=== PATIENT | male | born 1940 | race African-American/Black ===

== ENCOUNTER 2019-05-29 02:47 | Inpatient (IN) | payer MEDICARE, OTHER ==
[2019-05-29 03:19] LABS: #Eosinphils 0.1 thou/uL (0.0-0.7); #Lymphocytes 1.2 thou/uL (1.20-3.40); #Monocytes 0.6 thou/uL (0.11-0.59); #Neutrophils 9.8 thou/uL (1.40-6.50); %Eosinophils 0.4 % (0.0-10.0); %Lymphocytes 10.2 % (21.0-51.0); %Monocytes 4.9 % (0.0-10.0); %Neutrophils 84.5 % (42.0-75.0); Mean Corpuscular HGB CONC 33.6 g/dL (32.0-36.0); Mean Corpuscular Hemoglobin 30.2 pg (27.0-31.0); Mean Platelet Volume 8.5 fL (7.4-10.4); Platelet Count 195 thou/uL (130-400); RBC Distribution Width 14.1 % (11.5-14.5); Red Blood Cell (RBC) Count 3.97 mill/uL (4.70-6.10); White Blood Cell (WBC) Count 11.5 thou/uL (4.8-10.8)
[2019-05-29] MEDS ORDERED: Furosemide 40 MG/4 ML VIAL ONE (03:43)
[2019-05-29 03:47] LABS: ALT (SGPT) 8 U/L (8-55); AST (SGOT) 13 U/L (5-34); Alkaline Phosphatase 69 U/L (40-110); Anion Gap 15 mmol/L (10-20); BUN (Urea Nitrogen) 25 mg/dL (8.4-25.7); Bilirubin, Total 0.7 mg/dL (0.2-1.2); Calc. Creatinine Clearance 0 mL/min (70-130); Calcium 9.8 mg/dL (7.8-10.44); Carbon Dioxide 23 mmol/L (23-31); Chloride 112 mmol/L (98-107); Estimated GFR-MDRD 45; Globulin 3.2 g/dL (2.4-3.5); Glucose 174 mg/dL (83-110); Potassium 3.7 mmol/L (3.5-5.1); Protein, Total 7.2 g/dL (5.8-8.1); Sodium 146 mmol/L (136-145)
[2019-05-29 04:05] LABS: CKMB 2.8 ng/mL (0-6.6)
--- NOTE | 2019-05-29 04:39 | PDOC.EVN ---
Event Note - Event Note Event Note: [id number]
--- NOTE | 2019-05-29 05:04 | HP ---
CHIEF COMPLAINT: Shortness of breath. HISTORY OF PRESENT ILLNESS: Mr. Kearney is a 78-year-old male with past medical history of congestive heart failure, COPD, sleep apnea, diabetes, hypertension, hyperlipidemia, benign brain tumor, among others, presents to the emergency room with shortness of breath for the last few days. As per the patient, he always has shortness of breath, but the last few days, his symptoms got worse. Denies chest pain or palpitations. No fever, no chills. Workup in the emergency room, the patient had a BNP of 807. The patient had bilateral crackles. The patient was given IV Lasix. The patient is being admitted to hospital for further management. The patient's blood pressure was elevated at 178/100. The patient was given nitroglycerin paste, latest blood pressure is 147/85. PAST MEDICAL HISTORY: As mentioned above in history of present illness. PAST SURGICAL HISTORY: 1. Left total knee surgery. 2. TURP. 3. Heart catheterization. FAMILY HISTORY: Reviewed and noncontributory. HOME MEDICATIONS: Please see home medication reconciliation form for updated medications. ALLERGIES: NO KNOWN ALLERGIES. REVIEW OF SYSTEMS: Review of 14 systems negative except what is mentioned in history of present illness. PHYSICAL EXAMINATION: GENERAL: The patient is awake, alert, in moderate respiratory distress. VITAL SIGNS: Blood pressure 147/85, pulse is 67, respiratory rate is 20, temperature 98.3, oxygen saturation is 96% on 3 L/minute nasal cannula. HEAD AND NECK: Normocephalic, atraumatic. NECK: Supple. No JVD. CHEST: Few bibasilar crackles. HEART: S1, S2. Regular. ABDOMEN: Obese, soft. Bowel sounds present. NEUROLOGIC: Awake, alert, oriented x3. PSYCHIATRIC: Normal mood. EXTREMITIES: Trace pedal edema. LABORATORY DATA: Sodium 146, potassium 3.7, BUN is 25, creatinine 1.7, glucose 174. BNP is 807, troponin 0.08. WBC count is 11.5, hemoglobin is 12, platelets 195. ASSESSMENT: 1. Acute on chronic congestive heart failure, type is undetermined. As per patient, last 2D echo was 3 years ago. 2. Acute on chronic respiratory failure. 3. Chronic obstructive pulmonary disease. 4. Diabetes mellitus. 5. Hypertension. 6. Hyperlipidemia. PLAN: 1. Admit. 2. Telemetry monitoring. 3. Serial troponins. 4. Continue with IV diuresis. 5. Monitor and control blood pressure. 6. Oxygen to keep saturation more than 92%. 7. Reconcile home medications. 8. A 2D echo in a.m. Last 2D echo was 3 years ago. 9. Consider cardiology consultation in a.m. 10. Deep venous thrombosis prophylaxis, low-dose heparin. 11. Expected length of stay, 2 midnights or more. Job ID: [id number]
[2019-05-29 05:54] VITALS: BMI 31.6
[2019-05-29 07:08] LABS: Troponin I 0.184 ng/mL (< 0.028)
[2019-05-29] MEDS: Furosemide 40 MG/4 ML VIAL SLOW IVP SCH ×2 (07:53→14:37)
--- NOTE | 2019-05-29 08:21 | RAD ---
Exam: Chest one view: HISTORY: Chest pain and difficulty breathing FINDINGS: Cardiomegaly with bilateral vascular congestion and interstitial and alveolar edema with costophrenic angle blunting, probably representing small pleural effusions. No confluent pneumonia. IMPRESSION: Evidence for congestive heart failure with cardiomegaly, vascular congestion, and interstitial and al veolar edema. Continued short-term follow-up.
[2019-05-29] MEDS: Heparin 5,000 UNITS/ML VIAL SC SCH ×3 (08:31→20:51)
[2019-05-29] MEDS: Aspirin Chewable 81 MG TAB PO SCH (08:31)
[2019-05-29] MEDS ORDERED: HumaLOG 300 UNITS/3 ML VIAL SC PRN (11:31)
[2019-05-29] MEDS ORDERED: Dextrose 50% Abboject 50 ML SYRINGE SLOW IVP PRN (11:31)
[2019-05-29] MEDS ORDERED: Dextrose 5% in Water 1,000 ML IV PRN (11:31)
[2019-05-29] MEDS ORDERED: hydrALAZINE 25 MG TAB PO SCH (13:45)
[2019-05-29] MEDS ORDERED: Escitalopram Oxalate 10 mg Tablet PO SCH (14:00)
--- NOTE | 2019-05-29 15:56 | PDOC.EVN ---
Event Note - Event Note Event Note: Patient examined. 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 He has a history of CHF. Has been hospitalized in the past with CHF. Here visiting his daughter. He has received IV lasix. He is doing much better already. Breathing better. Does not have oxygen at home, but feels like it is helping him at the moment. Heart regular. Lungs with mild basilar rales. Abdomen benign. Extremities without significant edema. Continue IV Lasix for volume overload related to the CHF. Echo pending. BP high. Resuming home meds and giving now doses for those he has missed already today.
[2019-05-29] MEDS ORDERED: hydrALAZINE 20 MG/ML VIAL SLOW IVP PRN (16:58)
[2019-05-29] MEDS: hydrALAZINE 25 MG TAB PO SCH (20:48)
[2019-05-29] MEDS: Carvedilol 6.25 MG TAB PO SCH (20:49)
[2019-05-29] MEDS: Atorvastatin Calcium 40 MG TAB PO SCH (20:49)
[2019-05-29] MEDS: Tamsulosin HCl 0.4 MG CAP PO SCH (20:49)
[2019-05-29] MEDS: Fluticasone Propionate Nasal Spray 16 gm Bottle NASAL SCH (20:51)
[2019-05-29] MEDS: Polyethylene Glycol 3350 17 GM Packet PO SCH (20:55)
[2019-05-29] MEDS ORDERED: Prevnar 13-Val Conj/PF 0.5 ML SYRINGE IM ONE (21:00)
[2019-05-29] MEDS ORDERED: FLU VACC TS2019-20(65YR UP)/PF 180 MCG/0.5 ML SYRINGE IM ONE (21:00)
[2019-05-29] MEDS ORDERED: Furosemide 40 MG TAB PO SCH (21:00)
[2019-05-30 05:12] LABS: Anion Gap 13 mmol/L (10-20); BUN (Urea Nitrogen) 23 mg/dL (8.4-25.7); Calc. Creatinine Clearance 64 mL/min (70-130); Calcium 10.2 mg/dL (7.8-10.44); Carbon Dioxide 23 mmol/L (23-31); Chloride 110 mmol/L (98-107); Estimated GFR-MDRD 58; Glucose 123 mg/dL (83-110); Magnesium 2.1 mg/dL (1.6-2.6); Potassium 3.3 mmol/L (3.5-5.1); Sodium 143 mmol/L (136-145)
[2019-05-30] MEDS: Furosemide 40 MG/4 ML VIAL SLOW IVP SCH ×2 (05:49→14:11)
[2019-05-30] MEDS: Sodium Chloride 0.9% 10 ML ONE (05:49)
[2019-05-30] MEDS: Carvedilol 6.25 MG TAB PO SCH (08:20)
[2019-05-30] MEDS: Alogliptin 25 MG TAB PO SCH (08:20)
[2019-05-30] MEDS: hydrALAZINE 25 MG TAB PO SCH ×3 (08:21→20:34)
[2019-05-30] MEDS: Losartan 25 MG TAB PO SCH (08:21)
[2019-05-30] MEDS: Escitalopram Oxalate 10 mg Tablet PO SCH (08:22)
[2019-05-30] MEDS: Aspirin Chewable 81 MG TAB PO SCH (08:22)
[2019-05-30] MEDS: Ezetimibe 10 MG TAB PO SCH (08:22)
[2019-05-30] MEDS: Montelukast Sodium 10 mg Tablet PO SCH (08:22)
[2019-05-30] MEDS: Ferrous Sulfate 325 MG TAB PO SCH (08:22)
[2019-05-30] MEDS: Heparin 5,000 UNITS/ML VIAL SC SCH ×3 (08:22→20:41)
[2019-05-30] MEDS ORDERED: Non-Formulary Item 1 EACH (Tiotropium Bromide [Spiriva Respimat] 2 INH) IH SCH (09:00)
[2019-05-30] MEDS ORDERED: Potassium Chloride 20 MEQ TAB PO SCH (09:15)
--- NOTE | 2019-05-30 09:28 | PDOC.HOSPP ---
- Subjective Encounter Date: 05/30/19 Encounter Time: 09:26 Subjective: Feels like his is not any better. He had felt better yesterday at the time of my exam, but now feels like he may have regressed. He does believe that we are giving him all of his usual home meds and he is not missing anything. He reports pain in the right "kidney" area. Monitor indicates frequent morphology change with a wider QRS and higher voltage potential. Does not drastically impact the rate. - Objective Vital Signs & Weight: Vital Signs (12 hours) Temp Pulse Resp BP BP Pulse Ox 05/30/19 08:21 72 201/91 H 05/30/19 08:20 201/91 H 05/30/19 07:00 72 21 H 174/72 H 94 L 05/30/19 06:40 97 05/30/19 06:39 62 18 97 05/30/19 05:49 59 L 05/30/19 05:47 98.1 F 59 L 20 190/92 H 94 L 05/30/19 00:17 78 16 98 05/30/19 00:05 165/95 H 98 Weight Weight 230 lb 9.6 oz I&O: 05/29/19 05/30/19 05/31/19 06:59 06:59 06:59 Intake Total 1120 Output Total 2725 Balance -1605 Result Diagrams: 05/29/19 03:10 05/30/19 04:21 Additional Labs: Accuchecks 05/30/19 05/29/19 05/29/19 05:48 20:01 17:03 POC Glucose 110 144 H 152 H Hospitalist ROS - Medication Medications: Active Medications Generic Name Dose Route Start Last Admin Trade Name Freq PRN Reason Stop Dose Admin Albuterol/Ipratropium 3 ml 05/29/19 19:00 05/30/19 06:39 Duoneb NEB 3 ml [id number] [place] Administration Alogliptin Benzoate 25 mg 05/30/19 09:00 05/30/19 08:20 Alogliptin PO 25 mg DAILY [place] Administration Aspirin 81 mg 05/29/19 09:00 05/30/19 08:22 Aspirin Chewable PO 81 mg DAILY [place] Administration Atorvastatin Calcium 40 mg 05/29/19 21:00 05/29/19 20:49 Lipitor PO 40 mg HS [place] Administration Carvedilol 12.5 mg 05/29/19 21:00 05/30/19 08:20 Coreg PO 12.5 mg BID [place] Administration Ezetimibe 10 mg 05/30/19 09:00 05/30/19 08:22 Zetia PO 10 mg DAILY [place] Administration Escitalopram Oxalate 10 mg 05/30/19 09:00 05/30/19 08:22 Lexapro PO 10 mg DAILY [place] Administration Ferrous Sulfate 325 mg 05/30/19 09:00 05/30/19 08:22 Feosol PO 325 mg DAILY [place] Administration Fluticasone Propionate 0 gm 05/29/19 21:00 05/29/19 20:51 Flonase Nasal Logan NASAL Not Given BID [place] Furosemide 40 mg 05/29/19 06:00 05/30/19 05:49 Lasix SLOW IVP 40 mg 0600,1400 [place] Administration Heparin Sodium (Porcine) 5,000 units 05/29/19 09:00 05/30/19 08:22 Heparin SC 5,000 units TID [place] Administration Hydralazine HCl 50 mg 05/29/19 21:00 05/30/19 08:21 Apresoline PO 50 mg TID [place] Administration Hydralazine HCl 10 mg 05/29/19 16:58 05/30/19 05:49 Apresoline SLOW IVP 10 mg Q4H PRN Administration Hypertension Losartan Potassium 100 mg 05/30/19 09:00 05/30/19 08:21 Cozaar PO 100 mg DAILY [place] Administration Montelukast Sodium 10 mg 05/30/19 09:00 05/30/19 08:22 Singulair PO 10 mg DAILY [place] Administration Polyethylene Glycol 17 gm 05/29/19 21:00 05/29/19 20:55 Miralax PO 17 gm HS [place] Administration Tamsulosin HCl 0.4 mg 05/29/19 21:00 05/29/19 20:49 Flomax PO 0.4 mg HS [place] Administration - Exam General Appearance: NAD, awake alert General - other findings: Appears generally comfortable with NC oxygen. Heart: no murmur, no rubs, irregular Respiratory - other findings: Diminished slightly and minimal bibasilar rales. Gastrointestinal: soft, non-tender, non-distended, normal bowel sounds, no palpable masses, no hepatomegaly, no splenomegaly, no bruit Gastrointestinal - other findings: No Right CVAT. Extremities: no cyanosis, no clubbing, no edema Skin: normal turgor Musculoskeletal: normal tone, normal strength, no muscle wasting Psychiatric: normal affect, normal behavior, A&O x 3 Hosp A/P (1) Acute on chronic congestive heart failure Code(s): I50.9 - HEART FAILURE, UNSPECIFIED Status: Acute (2) HTN (hypertension) Code(s): I10 - ESSENTIAL (PRIMARY) HYPERTENSION Status: Acute (3) Atrial ectopy Code(s): I49.1 - ATRIAL PREMATURE DEPOLARIZATION Status: Acute (4) JAMESON (acute kidney injury) Code(s): N17.9 - ACUTE KIDNEY FAILURE, UNSPECIFIED Status: Acute (5) Diabetes mellitus Code(s): E11.9 - TYPE 2 DIABETES MELLITUS WITHOUT COMPLICATIONS Status: Acute (6) Right flank pain Code(s): R10.9 - UNSPECIFIED ABDOMINAL PAIN Status: Acute (7) Leukocytosis Code(s): D72.829 - ELEVATED WHITE BLOOD CELL COUNT, UNSPECIFIED Status: Acute (8) HLD (hyperlipidemia) Code(s): E78.5 - HYPERLIPIDEMIA, UNSPECIFIED Status: Acute (9) BPH (benign prostatic hyperplasia) Code(s): N40.0 - BENIGN PROSTATIC HYPERPLASIA WITHOUT LOWER URINRY TRACT SYMP Status: Acute (10) Myocardial infarction Code(s): I21.9 - ACUTE MYOCARDIAL INFARCTION, UNSPECIFIED Status: Acute Qualifiers: Myocardial infarction type: type 2 Qualified Code(s): I21.A1 - Myocardial infarction type 2 - Plan BP still too high. Has prn's available. Just had his am meds. Will watch that closely. Renal function is a little better. Do not know what his baseline creatinine is. Will get US of kidneys given the presumed JAMESON and right flank pain. Has diuresed. Still SOB. Repeat CXR. Echo results still pending. Cardiology consult. Discussed with Dr. Giang. Rhythm and morphology a little unusual. Appears to be more of an axis change with atrial ectopy. Dr. Giang aware. Will check Mag, TSH. Trops slightly elevated consistent with NSTEMI type 2 related to CHF. UA in light of JAMESON, right flank pain and leukocytosis. Repeat CBC.
[2019-05-30] MEDS: Fluticasone Propionate Nasal Spray 16 gm Bottle NASAL SCH ×2 (09:31→20:40)
[2019-05-30 12:09] LABS: #Eosinphils 0.1 thou/uL (0.0-0.7); #Lymphocytes 1.2 thou/uL (1.20-3.40); #Monocytes 0.5 thou/uL (0.11-0.59); #Neutrophils 6.8 thou/uL (1.40-6.50); %Basophils 0.5 % (0.0-1.0); %Eosinophils 0.6 % (0.0-10.0); %Lymphocytes 14.1 % (21.0-51.0); %Monocytes 6.1 % (0.0-10.0); %Neutrophils 78.6 % (42.0-75.0); Hemoglobin 12.5 g/dL (14.0-18.0); Mean Corpuscular HGB CONC 32.9 g/dL (32.0-36.0); Mean Corpuscular Hemoglobin 29.5 pg (27.0-31.0); Mean Corpuscular Volume 89.5 fL (78.0-98.0); Mean Platelet Volume 9.3 fL (7.4-10.4); Platelet Count 192 thou/uL (130-400); RBC Distribution Width 14.3 % (11.5-14.5); Red Blood Cell (RBC) Count 4.22 mill/uL (4.70-6.10); White Blood Cell (WBC) Count 8.6 thou/uL (4.8-10.8)
--- NOTE | 2019-05-30 12:41 | RAD ---
CHEST 1 VIEW: Date: 05/30/19 HISTORY: Congestive heart failure. COMPARISON: 05/29/19. FINDINGS: Stable cardiomegaly. Improving vascular congestion and interstitial edema from the prior study. IMPRESSION: Improving vascular congestion and edema from the prior study. Continue follow-up for clearing or stab ility. POS: [facility]
--- NOTE | 2019-05-30 13:55 | ULT ---
BILATERAL RENAL ULTRASOUND: Date: 05/30/19 COMPARISON: None. HISTORY: Acute kidney injury, hypertension, right-sided flank pain. TECHNIQUE: Multiplanar Seth scale sonographic imaging of the kidneys and urinary bladder obtained. FINDINGS: The right kidney measures 10.5 x 5.3 x 4.9 cm. The left kidney measures 10.1 x 5.4 x 5.9 cm. There is a small right renal cyst measuring approximately 1.8 x 2.5 x 2.3 cm. No solid renal mass noted on ei ther side. No hydronephrosis is apparent on either side. Urinary bladder appears grossly unremarkable. IMPRESSION: No hydronephrosis noted on either side. Right renal cyst. POS: OFF
[2019-05-30] MEDS: Isosorbide Dinitrate 20 MG TAB PO SCH ×2 (15:00→20:34)
--- NOTE | 2019-05-30 17:03 | PDOC.FMACP ---
Advance Care Planning - Problem (1) Acute on chronic congestive heart failure Status: Acute Code(s): I50.9 - HEART FAILURE, UNSPECIFIED (2) HTN (hypertension) Status: Acute Code(s): I10 - ESSENTIAL (PRIMARY) HYPERTENSION (3) Atrial ectopy Status: Acute Code(s): I49.1 - ATRIAL PREMATURE DEPOLARIZATION (4) JAMESON (acute kidney injury) Status: Acute Code(s): N17.9 - ACUTE KIDNEY FAILURE, UNSPECIFIED (5) Diabetes mellitus Status: Acute Code(s): E11.9 - TYPE 2 DIABETES MELLITUS WITHOUT COMPLICATIONS (6) Right flank pain Status: Acute Code(s): R10.9 - UNSPECIFIED ABDOMINAL PAIN (7) Leukocytosis Status: Acute Code(s): D72.829 - ELEVATED WHITE BLOOD CELL COUNT, UNSPECIFIED (8) HLD (hyperlipidemia) Status: Acute Code(s): E78.5 - HYPERLIPIDEMIA, UNSPECIFIED (9) BPH (benign prostatic hyperplasia) Status: Acute Code(s): N40.0 - BENIGN PROSTATIC HYPERPLASIA WITHOUT LOWER URINRY TRACT SYMP (10) Myocardial infarction Status: Acute Code(s): I21.9 - ACUTE MYOCARDIAL INFARCTION, UNSPECIFIED Qualifiers: Myocardial infarction type: type 2 Qualified Code(s): I21.A1 - Myocardial infarction type 2 - Note Participants: patient, family Summary: Advanced Care Planning was discussed. The diagnosis, prognosis and goals of care were discussed. Appropriate forms and documentation to accomplish the goals of care were discussed. All questions were answered. The Palliative Care Team will be engaged to assist with completion of any outstanding forms that are needed. Currently the family and patient are discussing Hospice. Time Spent (mins): 17
--- NOTE | 2019-05-30 19:05 | CON ---
DATE OF CONSULTATION: HISTORY OF PRESENT ILLNESS: The patient is a pleasant 78-year-old gentleman, presents for evaluation of dyspnea. The patient has a previous history of congestive heart failure. The patient is followed by a helper coordinator in [place]. He states that he underwent a cardiac catheterization previously, revealed only mild coronary artery disease. The patient was in his usual state of health when he presented with acute onset of dyspnea. The patient denied having any chest discomfort. He presented to the emergency room and was noted to be markedly hypertensive. The patient states he has been compliant with his medications and low-sodium diet. PAST MEDICAL HISTORY: 1. Congestive heart failure. 2. Hypertension. 3. Diabetes mellitus. 4. Dyslipidemia. 5. COPD. 6. Sleep apnea. 7. History of benign brain tumor. PAST SURGICAL HISTORY: He had a knee surgery and TURP. SOCIAL HISTORY: Nonsmoker. FAMILY HISTORY: No strong family history of heart disease. ALLERGIES: NO KNOWN DRUG ALLERGIES. MEDICATIONS: On admission include, he takes; 1. Zetia 10 daily. 2. Lipitor 40 at bedtime. 3. Flomax 0.4 daily. 4. Coreg 12.5 b.i.d. 5. Lasix 40 b.i.d. 6. Micardis 80 daily. REVIEW OF SYSTEMS: Ten-point system otherwise unremarkable. PHYSICAL EXAMINATION: GENERAL: Obese gentleman, in no acute distress. VITAL SIGNS: Blood pressure of 160/82. NECK: Full. LUNGS: Have a few crackles in both bases. HEART: Regular rate and rhythm. Normal S1 and S2, 1/6 systolic murmur. ABDOMEN: Distended. EXTREMITIES: Showed no edema. Vascular and radial pulses 2+. LABORATORY DATA: Sodium 143, potassium 3.3, chloride 110, bicarbonate 23, BUN 23, creatinine 1.4, glucose is 123. BNP was 685. His white blood cell count is 8.6, hemoglobin 12.5, hematocrit 37.8, platelets are 192. His EKG revealed a normal sinus rhythm with prolonged first-degree AV block, nonspecific ST-T wave abnormality. Telemetry monitoring revealed him to have prolonged pauses with frequent ventricular ectopy. His chest x-ray revealed pulmonary vascular congestion. IMPRESSION: 1. Congestive heart failure. 2. Hypertensive crisis. 3. Severe bradycardia. 4. Dyslipidemia. 5. Sleep apnea. 6. Obesity. This gentleman presents with congestive heart failure with a markedly elevated blood pressure. I would recommend BiDil for this gentleman with a history of congestive heart failure for survival benefit, with the patient's low heart, we will hold his Coreg. We will ask EP to evaluate. We will obtain records from [place]. We will follow this patient with you through his hospitalization. Job ID: [id number]
[2019-05-30] MEDS: Atorvastatin Calcium 40 MG TAB PO SCH (20:34)
[2019-05-30] MEDS: Polyethylene Glycol 3350 17 GM Packet PO SCH (20:34)
[2019-05-30] MEDS: Tamsulosin HCl 0.4 MG CAP PO SCH (20:34)
[2019-05-30] MEDS: Nitroglycerin 2% Ointment 1 INCH/1 GM Packet TOP SCH (20:45)
[2019-05-31 05:10] LABS: Anion Gap 11 mmol/L (10-20); BUN (Urea Nitrogen) 28 mg/dL (8.4-25.7); Calc. Creatinine Clearance 55 mL/min (70-130); Calcium 9.6 mg/dL (7.8-10.44); Carbon Dioxide 25 mmol/L (23-31); Chloride 108 mmol/L (98-107); Estimated GFR-MDRD 49; Glucose 102 mg/dL (83-110); Potassium 3.3 mmol/L (3.5-5.1); Sodium 141 mmol/L (136-145)
[2019-05-31] MEDS: Furosemide 40 MG/4 ML VIAL SLOW IVP SCH (05:33)
[2019-05-31 06:57] LABS: Bilirubin Negative (Negative); Blood, Urine Negative (Negative); Clarity Clear (Clear); Glucose, Urine (Dipstick) Normal (Negative); Leukocyte Negative Leu/uL (Negative); Nitrite Negative (Negative); Protein, Urine (Dipstick) 70 mg/dL (Neg-Trace); RBC/HPF 0-3 HPF (0-3); Squamous Epithelial 0-3 HPF (0-3); Urobilinogen Normal mg/dL (Less than 2); WBC/HPF 0-3 HPF (0-3)
[2019-05-31 06:58] LABS: Bacteria/HPF 1+ HPF (None Seen)
[2019-05-31] MEDS: Losartan 25 MG TAB PO SCH (08:21)
[2019-05-31] MEDS: Ezetimibe 10 MG TAB PO SCH (08:22)
[2019-05-31] MEDS: Escitalopram Oxalate 10 mg Tablet PO SCH (08:22)
[2019-05-31] MEDS: hydrALAZINE 25 MG TAB PO SCH ×3 (08:22→20:38)
[2019-05-31] MEDS: Ferrous Sulfate 325 MG TAB PO SCH (08:22)
[2019-05-31] MEDS: Montelukast Sodium 10 mg Tablet PO SCH (08:23)
[2019-05-31] MEDS: Aspirin Chewable 81 MG TAB PO SCH (08:23)
[2019-05-31] MEDS: Alogliptin 25 MG TAB PO SCH (08:23)
[2019-05-31] MEDS: Nitroglycerin 2% Ointment 1 INCH/1 GM Packet TOP SCH (08:23)
[2019-05-31] MEDS: Isosorbide Dinitrate 20 MG TAB PO SCH ×3 (08:23→20:38)
[2019-05-31] MEDS: Fluticasone Propionate Nasal Spray 16 gm Bottle NASAL SCH ×2 (08:24→20:46)
[2019-05-31] MEDS: Sodium Chloride 0.9% 10 ML ONE (08:25)
[2019-05-31] MEDS: Heparin 5,000 UNITS/ML VIAL SC SCH ×3 (08:28→20:38)
[2019-05-31] MEDS: Furosemide 20 MG TAB PO SCH ×2 (09:11→13:12)
[2019-05-31] MEDS ORDERED: Potassium Chloride 20 MEQ TAB PO SCH (09:45)
--- NOTE | 2019-05-31 09:50 | PDOC.HOSPP ---
- Subjective Encounter Date: 05/31/19 Encounter Time: 09:46 Subjective: Pt doing well off O2. Denies any SOB and states that flank pain has resolved. - Objective Vital Signs & Weight: Vital Signs (12 hours) Temp Pulse Resp BP BP Pulse Ox 05/31/19 08:22 60 177/90 H 05/31/19 08:00 97.8 F 60 18 177/90 H 97 05/31/19 06:45 91 L 05/31/19 06:41 61 20 91 L 05/31/19 04:00 98.7 F 69 18 166/82 H 96 Weight Weight 230 lb 1.6 oz I&O: 05/30/19 05/31/19 06/01/19 06:59 06:59 06:59 Intake Total 1120 1340 Output Total 8275 1960 Balance -1605 -470 Result Diagrams: 05/30/19 11:26 05/31/19 04:29 Additional Labs: Accuchecks 05/31/19 05/30/19 05/30/19 05:38 21:11 16:54 POC Glucose 110 172 H 114 H 05/30/19 10:33 POC Glucose 134 H Hospitalist ROS - Medication Medications: Active Medications Generic Name Dose Route Start Last Admin Trade Name Freq PRN Reason Stop Dose Admin Albuterol/Ipratropium 3 ml 05/29/19 19:00 05/31/19 06:41 Duoneb NEB 3 ml [id number] [place] Administration Alogliptin Benzoate 25 mg 05/30/19 09:00 05/31/19 08:23 Alogliptin PO 25 mg DAILY [place] Administration Aspirin 81 mg 05/29/19 09:00 05/31/19 08:23 Aspirin Chewable PO 81 mg DAILY [place] Administration Atorvastatin Calcium 40 mg 05/29/19 21:00 05/30/19 20:34 Lipitor PO 40 mg HS [place] Administration Ezetimibe 10 mg 05/30/19 09:00 05/31/19 08:22 Zetia PO 10 mg DAILY [place] Administration Escitalopram Oxalate 10 mg 05/30/19 09:00 05/31/19 08:22 Lexapro PO 10 mg DAILY [place] Administration Ferrous Sulfate 325 mg 05/30/19 09:00 05/31/19 08:22 Feosol PO 325 mg DAILY [place] Administration Fluticasone Propionate 0 gm 05/29/19 21:00 05/31/19 08:24 Flonase Nasal [place] NASAL 1 spr BID [place] Administration Heparin Sodium (Porcine) 5,000 units 05/29/19 09:00 05/31/19 08:28 Heparin SC 5,000 units TID [place] Administration Hydralazine HCl 50 mg 05/29/19 21:00 05/31/19 08:22 Apresoline PO 50 mg TID [place] Administration Hydralazine HCl 10 mg 05/29/19 16:58 05/30/19 05:49 Apresoline SLOW IVP 10 mg Q4H PRN Administration Hypertension Isosorbide Dinitrate 20 mg 05/30/19 15:00 05/31/19 08:23 Isordil PO 20 mg TID [place] Administration Losartan Potassium 100 mg 05/30/19 09:00 05/31/19 08:21 Cozaar PO 100 mg DAILY [place] Administration Montelukast Sodium 10 mg 05/30/19 09:00 05/31/19 08:23 Singulair PO 10 mg DAILY [place] Administration Polyethylene Glycol 17 gm 05/29/19 21:00 05/30/19 20:34 Miralax PO 17 gm HS [place] Administration Tamsulosin HCl 0.4 mg 05/29/19 21:00 05/30/19 20:34 Flomax PO 0.4 mg HS [place] Administration - Exam General Appearance: NAD, awake alert Heart: RRR, no murmur, no gallops, no rubs, normal peripheral pulses Heart - other findings: Frequent ectopic beats. Respiratory: CTAB, no wheezes, no rales, no ronchi, normal chest expansion, no tachypnea, normal percussion Gastrointestinal: soft, non-tender, non-distended, normal bowel sounds, no palpable masses, no hepatomegaly, no splenomegaly, no bruit Extremities: no cyanosis, no clubbing, no edema Neurological: no focal deficits Musculoskeletal: normal tone Psychiatric: normal affect, normal behavior, A&O x 3 Hosp A/P (1) Acute on chronic combined systolic (congestive) and diastolic (congestive) heart failure Code(s): I50.43 - ACUTE ON CHRONIC COMBINED SYSTOLIC AND DIASTOLIC HRT FAIL Status: Acute (2) HTN (hypertension) Code(s): I10 - ESSENTIAL (PRIMARY) HYPERTENSION Status: Acute (3) Atrial ectopy Code(s): I49.1 - ATRIAL PREMATURE DEPOLARIZATION Status: Acute (4) JAMESON (acute kidney injury) Code(s): N17.9 - ACUTE KIDNEY FAILURE, UNSPECIFIED Status: Acute (5) Diabetes mellitus Code(s): E11.9 - TYPE 2 DIABETES MELLITUS WITHOUT COMPLICATIONS Status: Acute (6) Right flank pain Code(s): R10.9 - UNSPECIFIED ABDOMINAL PAIN Status: Acute (7) Leukocytosis Code(s): D72.829 - ELEVATED WHITE BLOOD CELL COUNT, UNSPECIFIED Status: Acute (8) HLD (hyperlipidemia) Code(s): E78.5 - HYPERLIPIDEMIA, UNSPECIFIED Status: Acute (9) BPH (benign prostatic hyperplasia) Code(s): N40.0 - BENIGN PROSTATIC HYPERPLASIA WITHOUT LOWER URINRY TRACT SYMP Status: Acute (10) Myocardial infarction Code(s): I21.9 - ACUTE MYOCARDIAL INFARCTION, UNSPECIFIED Status: Acute Qualifiers: Myocardial infarction type: type 2 Qualified Code(s): I21.A1 - Myocardial infarction type 2 (11) Acute respiratory failure with hypoxia Code(s): J96.01 - ACUTE RESPIRATORY FAILURE WITH HYPOXIA Status: Resolved - Plan BP still elevated. Cardiology added isosorbide to the hydralazine. Has prn's available. Will watch that closely. Renal function is a little better. Do not know what his baseline creatinine is. Pt denies history of renal insufficiency but appears to have CKD stage III. US of kidneys was obtained for renal insufficiency and right flank pain. Revealed no hydronephrosis. Has diuresed. Slight hypokalemia. Will replace orally. Currently no SOB. Repeat CXR showed improving vascular congestion. Echo results still pending. Rhythm and morphology a little unusual. Appears to be more of an axis change with atrial ectopy. Dr. Giang aware. EP consulted. TSH and Mg within normal limits. Trops slightly elevated consistent with NSTEMI type 2 related to CHF. Repeat CBC and BMP in AM.
[2019-05-31] MEDS: Atorvastatin Calcium 40 MG TAB PO SCH (20:38)
[2019-05-31] MEDS: Tamsulosin HCl 0.4 MG CAP PO SCH (20:38)
[2019-05-31] MEDS: Polyethylene Glycol 3350 17 GM Packet PO SCH (20:39)
[2019-06-01 04:52] LABS: Anion Gap 12 mmol/L (10-20); BUN (Urea Nitrogen) 30 mg/dL (8.4-25.7); Calc. Creatinine Clearance 59 mL/min (70-130); Carbon Dioxide 25 mmol/L (23-31); Chloride 110 mmol/L (98-107); Estimated GFR-MDRD 51; Glucose 117 mg/dL (83-110); Potassium 3.6 mmol/L (3.5-5.1); Sodium 143 mmol/L (136-145)
[2019-06-01 08:21] VITALS: TEMP 98
--- NOTE | 2019-06-01 08:35 | CON ---
DATE OF CONSULTATION: 05/31/2019 HISTORY OF PRESENT ILLNESS: I am seeing Mr. 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 His problems are: 1. Episode of bradycardia. This seems to be associated with obstructive sleep apnea. a. Ventricular junction escape rhythm is seen. 2. Frequent PVCs and junctional escape beats. 3. Episodes of Mobitz type 1 second-degree AV block with 2:1 AV conduction. 4. Mild reduced LVEF 40% to 45%, mild LVH, mild MR and TR, and AI. 5. Elevated BMI, obesity. ALLERGIES: NONE NOTED. MEDICATIONS: At home includin. Escitalopram. 2. Tamsulosin. 3. Cholecalciferol. 4. Lipitor. 5. Hydralazine. 6. Furosemide. 7. Telmisartan. 8. Ferrous sulfate. 9. Sitagliptin. 10. Fluticasone. 11. Carvedilol 12.5 mg twice a day. 12. Tiotropium bromide. 13. Montelukast. 14. Ezetimibe. 15. Polyethylene glycol. SUBJECTIVE: Mr. Kearney is here with dyspnea. He has history of COPD and he was noted to have elevated BNP. IV Lasix was initiated and he is feeling better now. He is now feeling better after two days of hospital stay. During the hospital stay, a 2D echo revealed reduced LVEF of 40% to 45%. He also was noted to have episodic ventricular ectopy and some episodes of sinus bradycardia with junctional/ventricular ischemia beats, idioventricular rhythm is seen periodically. He also had an episode of Mobitz type 1 second-degree AV block AV conduction quite quickly resolving. These episode seems to be associated with the time when he is napping or sleeping. He is not aware of any dizziness, loss of consciousness, or palpitations. He has no stroke-like symptoms. No neurological deficits. No fever, chills, or cough. Rest of 12-point review of systems is otherwise unremarkable. PAST MEDICAL HISTORY: As above including systolic/diastolic CHF, hypertension, diabetes, dyslipidemia, COPD, sleep apnea, and history of benign brain tumor. SOCIAL HISTORY: Denies smoking. FAMILY HISTORY: Not remarkable. OBJECTIVE DATA: VITAL SIGNS: Blood pressure is 150/71, heart rate 65, respiratory rate is 18, temperature 98.6 degrees Fahrenheit. PHYSICAL EXAMINATION: GENERAL: Alert and oriented man, in no apparent distress. NECK: Supple. Jugular veins not distended. CHEST: Coarse without crackles. HEART: Sounds are regular rate and rhythm. No murmur or gallop. ABDOMEN: Benign. Bowel sounds positive. EXTREMITIES: Lower extremities without edema, clubbing, or cyanosis. DATABASE: EKG is reviewed revealing sinus rhythm, first-degree AV block, narrow QRS, occasional PVCs. Telemetry strips do reveal episodes of PVCs. There is also Mobitz type 2 second-degree AV block with 2:1 AV conduction, occurring at 6 o'clock noted in the morning when he was still sleeping. Episodic sinus bradycardia is also seen with medical escape beats as well. He has occasional couplets and bigeminy with similar morphology. LABORATORY DATA: White cell count is 8.6, hemoglobin 12.5, platelet count is 192. Sodium 141, potassium 3.3, BUN is 20, creatinine 1.65. Troponin I of 0.089, 0.184, and 0.140 on admission on the . ASSESSMENT AND PLAN: Mr. Kearney is a pleasant 79-year-old man with history of congestive heart failure and likely nonischemic cardiomyopathy. He has mild coronary artery disease per heart catheterization in the past. He was admitted with diastolic heart failure exacerbation and elevation of blood pressures and now is feeling better with blood pressure and volume control. On the other hand, he is noted to have episodes of bradycardia, both Mobitz type I second-degree AV block and sinus bradycardia is seen. 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 We discussed these issues and hence he is asymptomatic, I would not recommend pacing. On other hand, sleep mask, CPAP use is strongly recommended. For now, it is reasonable to continue beta-esau therapy and history of LV dysfunction. Should daytime bradycardia occur, this could be reduced. Further development of symptoms with adjustment of medication is present, he could be reconsidered for pacemaker implantation in the future. Job ID: [id number]
[2019-06-01] MEDS: hydrALAZINE 25 MG TAB PO SCH (09:00)
[2019-06-01] MEDS: Ferrous Sulfate 325 MG TAB PO SCH (09:00)
[2019-06-01] MEDS: Escitalopram Oxalate 10 mg Tablet PO SCH (09:00)
[2019-06-01] MEDS: Aspirin Chewable 81 MG TAB PO SCH (09:00)
[2019-06-01] MEDS: Alogliptin 25 MG TAB PO SCH (09:00)
[2019-06-01] MEDS: Ezetimibe 10 MG TAB PO SCH (09:00)
[2019-06-01] MEDS: Furosemide 20 MG TAB PO SCH (09:00)
[2019-06-01] MEDS: Isosorbide Dinitrate 20 MG TAB PO SCH (09:01)
[2019-06-01] MEDS: Montelukast Sodium 10 mg Tablet PO SCH (09:01)
[2019-06-01] MEDS: Losartan 25 MG TAB PO SCH (09:01)
[2019-06-01] MEDS: Fluticasone Propionate Nasal Spray 16 gm Bottle NASAL SCH (09:01)
[2019-06-01] MEDS: Heparin 5,000 UNITS/ML VIAL SC SCH (09:01)
[2019-06-01 10:46] VITALS: BP 137/63
--- NOTE | 2019-06-01 15:06 | PDOC.EP ---
- Subjective Date: 06/01/19 Time: 09:00 Interval History: Follow up for pauses. Feels well today. Continues to have pauses while sleeping and not on CPAP. No symptoms or complaints today - Review of Systems Constitutional: denies: chills, fever, malaise, sweats, weakness, other Respiratory: denies: cough, dry, hemoptysis, pleuritic pain, shortness of breath , SOB with excertion, sputum, wheezing, other Cardiology: denies: chest pain, edema, heart racing, light headedness, paroxysmal noc. dyspnea, orthopnea, palpitations, passing out, pleuritic pain, pressure, swelling, other Gastrointestinal: denies: abdominal pain, constipation, diarrhea, hematochezia, melena, nausea, vomitting, other Musculoskeletal: denies: unstable gait, falls, neck pain, shoulder pain, arm pain, hand pain, leg pain, foot pain, other Neurological: denies: headache, vision changes, other - Objective Allergies/Adverse Reactions: Allergies Allergy/AdvReac Type Severity Reaction Status Date / Time No Known Drug Allergies Allergy Verified 05/29/19 08:09 Vital Signs & Weight: Vital Signs Temp Pulse Resp BP BP Pulse Ox 06/01/19 10:05 67 18 137/63 93 L 06/01/19 07:33 98.0 F 58 L 16 191/92 H 95 06/01/19 06:36 92 L 06/01/19 06:34 62 20 90 L 06/01/19 03:41 97.6 F 66 18 148/65 H 92 L Weight 240 lb 14.4 oz I/O: I/O 05/31/19 06/01/19 06/02/19 06:59 06:59 06:59 Intake Total 1340 970 Output Total 1960 910 Balance -620 60 - Physical Exam General: alert & oriented x3, appears well, no apparent distress, speech clear, affect appropriate Neck: supple neck, midline trachea, no JVD/HJR Cardiology: regular rate and rhythm, no murmur, regular rate, regular rhythm Lungs: clear to auscultation, normal breath sounds, no wheeze, rales, rhonchi Neurology: cranial nerve 2-12 intact, grossly intact - Labs Result Diagrams: 05/30/19 11:26 06/01/19 04:19 - EKG Interpretation EKG shows: Sinus rhythm - Assessment/Plan Assessment/Plan: 1. Episode of bradycardia. This seems to be associated with obstructive sleep apnea. a. Ventricular junction escape rhythm is seen. 2. Frequent PVCs and junctional escape beats. 3. Episodes of Mobitz type 1 second-degree AV block with 2:1 AV conduction. 4. Mild reduced LVEF 40% to 45%, mild LVH, mild MR and TR, and AI. 5. Elevated BMI, obesity. Mr Kearney continues to have asymptomatic pauses up to 5.2 seconds only while sleeping. He is not using CPAP here overnight. These pauses are likely due to [place] and not having CPAP here. He does not exhibit pauses while awake or have any symptomatic bradycardia. Refrain from permanent pacemaker at this time time. Resume home CPAP use. OK For DC by EP
--- NOTE | 2019-06-02 02:59 | DIS ---
DATE OF ADMISSION: 05/29/2019 DATE OF DISCHARGE: 06/01/2019 DISCHARGE DIAGNOSES: 1. Acute on chronic combined systolic and diastolic heart failure. 2. Acute hypoxic respiratory failure. 3. Pulmonary edema. 4. Cardiomyopathy with an ejection fraction of 40% to 45%. 5. Diastolic dysfunction. 6. Moderate concentric LVH. 7. Obstructive sleep apnea syndrome. 8. Right flank pain. 9. History of BPH. 10. Sinus pauses felt to be related to sleep apnea syndrome. 11. Diabetes mellitus, stable. 12. Non-ST elevation myocardial infarction, type 2 secondary to demand ischemia related to decompensated heart failure and acute hypoxic respiratory failure. 13. Hyperlipidemia. 14. Benign leukocytosis. HISTORY OF PRESENT ILLNESS: This patient is a 79-year-old male, who is from [place], visiting our area because his son-in-law was having some type of cardiac procedure. The patient developed significant shortness of breath and presented through the emergency department. The patient had a workup revealing some pulmonary edema, BNP of 807, white count of 11.5, hemoglobin of 12, BUN of 25, and creatinine of 1.7. His EKG showed nonspecific findings, but no evidence of acute ST- segment changes. He did have some hypoxia requiring oxygen supplementation. HOSPITAL COURSE: The patient was admitted to the hospital and started on aggressive IV diuresis to which he responded well. By that afternoon, the patient was feeling some better. However, the following day, felt like he had regressed a bit. He also reported on that day some right flank pain. His labs indicated renal insufficiency. The patient had no history of prior knowledge of any renal disease. Therefore , it was unclear if this was acute or chronic. He had a renal ultrasound, which did not demonstrate any significant medical renal disease nor did it demonstrate hydronephrosis. A simple cyst was noted. Subsequent echocardiogram was performed revealing an ejection fraction of 40% to 45%, with LVH and diastolic dysfunction , and it was felt his heart failure was secondary to combined systolic and diastolic etiology. He was seen in consultation by Cardiology, who recommended the addition of isordil as the patient was already on hydralazine and ultimately this could be combined to Bidil. The patient was also noted on his manager monitoring to have some pauses at times. He was therefore seen in consultation by the card grinder, who felt the patient's pauses were primarily related to sleep apnea. I did not recommend any further aggressive intervention and indicated that it was acceptable to continue the patient on his Coreg. The patient improved significantly clinically and his breathing was back to baseline. His renal function remained fairly stable with a GFR ranging from 45 to 51, and it was felt that this was most consistent with chronic kidney disease given his history of risk factors for that. With the patient being able to wean off oxygen without difficulty after being diuresed, he was getting up and around without difficulty. His labs were stable and his vital signs were generally stable. He was felt to be appropriate for discharge to home. PHYSICAL EXAMINATION: VITAL SIGNS: On the day of discharge, temperature is 98.0, pulse 58, respirations 16, O2 saturation 95%. BP was initially elevated at 191/92. However, the patient had a recurring pattern of elevated numbers in the morning and then significant improvement after taking his daily oral medications with fairly good stability throughout the day. HEART: Regular without murmurs. LUNGS: Clear to auscultation bilaterally with no wheezes or rales. ABDOMEN: Soft, nontender, and nondistended with positive bowel sounds. EXTREMITIES: No cyanosis, clubbing, or edema. DISPOSITION: The patient was cleared for discharge by Cardiology and Electrophysiology. He will be discharged to home. He is encouraged to follow up promptly with his primary care provider in [place]. He is encouraged to have a followup titration of his CPAP as he stated it has been a number of years since that was done. He is to have a heart healthy low-sodium diet and his activity level is as tolerated. DISCHARGE MEDICATIONS: Include: 1. MiraLAX daily p.r.n. 2. ProAir two puffs q.6 p.r.n. 3. Lexapro 10 mg daily. 4. Tamsulosin 0.4 mg at bedtime. 5. Vitamin D3 of 50,000 units q.week. 6. Atorvastatin 40 mg at bedtime. 7. Hydralazine 50 mg t.i.d. 8. Lasix 40 mg p.o. b.i.d. 9. Telmisartan 80 mg daily. 10. Ferrous sulfate 325 daily. 11. Januvia 100 mg daily. 12. Flonase Allergy Relief one spray per nare b.i.d. 13. Coreg 12.5 mg b.i.d. 14. Spiriva two inhalations daily. 15. Montelukast 10 mg daily. 16. Zetia 10 mg daily. 17. He is encouraged to take aspirin 81 mg daily and will have a new prescription for Isordil 20 mg p.o. t.i.d. FOLLOWUP: The patient can return to the hospital at any time should he have a need to do so. Time spent in discharge activities was 32 min. Job ID: [id number] MTDD
== END 2019-06-01 11:03 | disposition home or self-care (01) | DRG 280 ==
LOC: ERS 02:47 → 2NO 04:17
PROVIDERS: ADMIT Internal Medicine; ATTEND Internal Medicine
DX: I11.0 Hypertensive heart disease with heart failure (principal); I21.A1 Myocardial infarction type 2; J96.01 Acute respiratory failure with hypoxia; N17.9 Acute kidney failure, unspecified; I16.9 Hypertensive crisis, unspecified; I50.43 Acute on chronic combined systolic (congestive) and diastolic (congestive) heart failure; I42.9 Cardiomyopathy, unspecified; J44.9 Chronic obstructive pulmonary disease, unspecified; G47.30 Sleep apnea, unspecified; E78.5 Hyperlipidemia, unspecified; I25.10 Atherosclerotic heart disease of native coronary artery without angina pectoris; I44.1 Atrioventricular block, second degree; I49.1 Atrial premature depolarization; D72.829 Elevated white blood cell count, unspecified; N40.0 Benign prostatic hyperplasia without lower urinary tract symptoms; E66.9 Obesity, unspecified; Z68.33 Body mass index [BMI] 33.0-33.9, adult
CPT/HCPCS: 36415; 36416; 71045; 76770; 80048; 80053; 81003; 81015; 82553; 83735; 83880; 84443; 84484; 85025; 93005; 93010; 93306; 94640; J0360; J1644; J1940; J7620